=== PATIENT | female | born 1985 | race Caucasian/White ===

== ENCOUNTER 2021-01-22 19:07 | Outpatient (REF) | payer MEDICAID, SELFPAY ==
[2021-01-24 15:39] LABS: COVID-19 RT-PCR UVMMC Result Negative (Negative)
== END 2021-01-22 19:08 | disposition home or self-care (01) ==
LOC: NCHCN 19:07
PROVIDERS: PCP Family Medicine; Visit Provider Nurse Practitioner Community Health
DX: Z20.822 Contact with and (suspected) exposure to COVID-19 (principal); R05 Cough
CPT/HCPCS: U0003

== ENCOUNTER 2023-02-11 10:39 | Outpatient (REF) | payer MEDICAID, SELFPAY ==
[2023-02-11 15:31] LABS: ALT 27 U/L (14-59); AST 22 U/L (15-37); Albumin 4.4 g/dL (3.4-5.0); Alkaline Phosphatase 64 U/L (46-116); Anion Gap 10.1 mmol/L (3-11); BUN 18 mg/dL (7-18); Bilirubin, Total 0.9 mg/dL (0.2-1.0); CO2 26.9 mmol/L (21.0-32.0); CREATININE 0.8 mg/dL (0.55-1.02); Calcium 9.5 mg/dL (8.5-10.1); Calculated LDL 177 mg/dL (<100); Chloride 102 mmol/L (98-107); Cholesterol 260 mg/dL (<200); Estimated GFR 95.46 (mL/min/1.73m2); Glucose 92 mg/dL (74-106); HDL Cholesterol 74 mg/dL (40-60); Potassium 3.5 mmol/L (3.5-5.1); Sodium 139 mmol/L (136-145); Total Protein 7.4 g/dL (6.4-8.2); Triglyceride 49 mg/dL (<150)
[2023-02-11 15:41] LABS: Vitamin D 25 Total 16.8 ng/mL (30-100)
[2023-02-12 16:50] LABS: TSH (W/Ref FT4) 1.89 uIU/mL (0.36-3.74)
== END 2023-02-11 10:40 | disposition home or self-care (01) ==
LOC: NCHCN 10:39
PROVIDERS: PCP Family Medicine; Visit Provider Family Medicine
DX: E55.9 Vitamin D deficiency, unspecified (principal); R79.89 Other specified abnormal findings of blood chemistry; R61 Generalized hyperhidrosis
CPT/HCPCS: 80053; 80061; 82306; 84443

== ENCOUNTER 2023-02-12 16:31 | Outpatient (REF) | payer MEDICAID, SELFPAY ==
--- NOTE | 2023-02-12 14:00 | PAPFT_PTH ---
PATIENT: Tameka Atwood LOC: [facility]#:[id number] AGE/SX: 38/F ROOM: RE02/12/[address]: Yashira Bolden : 1985 BED: DIS: 02/12/2023 SPEC #: [id number] RECD: 02/16/23 13:25 STATUS: JOSIANE REFanny #: [id number] [place]: 02/12/23 14:[address]: Yashira Bolden [facility]PT[facility] Cytology RECD BY: Tiffani Perez Tissues: 1 - CX/ENDOCX FOR PAP SMEARS Procedures: PAP THIN PREP/[facility] Screening HPV DNA PROBE Comments: [id number] (CHLAMYDIA/GC)
[2023-02-17 15:48] LABS: Chlamydia Result Negative (Negative); GC Result Negative (Negative)
== END 2023-02-12 16:32 | disposition home or self-care (01) ==
LOC: NCHCN 16:31
PROVIDERS: PCP Family Medicine; Visit Provider Family Medicine
DX: Z11.3 Encounter for screening for infections with a predominantly sexual mode of transmission (principal); Z12.4 Encounter for screening for malignant neoplasm of cervix; Z11.51 Encounter for screening for human papillomavirus (HPV)
CPT/HCPCS: 87491; 87591; 88142; 87624

== ENCOUNTER 2024-10-10 15:16 | Outpatient (REF) | payer MEDICAID, SELFPAY ==
[2024-10-10 22:10] LABS: ALT 24 U/L (14-59); AST 14 U/L (15-37); Albumin 4.1 g/dL (3.4-5.0); Alkaline Phosphatase 63 U/L (46-116); Anion Gap 8.9 mmol/L (3-11); BUN 12 mg/dL (7-18); Bilirubin, Total 0.4 mg/dL (0.2-1.0); CO2 27.1 mmol/L (21.0-32.0); CREATININE 0.6 mg/dL (0.55-1.02); Calcium 9.2 mg/dL (8.5-10.1); Calculated LDL 124 mg/dL (<100); Chloride 105 mmol/L (98-107); Cholesterol 203 mg/dL (<200); Estimated GFR 115.57 (mL/min/1.73m2); Glucose 96 mg/dL (74-106); HDL Cholesterol 62 mg/dL (>or=50); Potassium 3.9 mmol/L (3.5-5.1); Sodium 141 mmol/L (136-145); Triglyceride 87 mg/dL (<150); Vitamin D 25 Total 11 ng/mL (30-100)
== END 2024-10-10 15:17 | disposition home or self-care (01) ==
LOC: NCHCN 15:16
PROVIDERS: PCP Family Medicine; Visit Provider Family Medicine
DX: F11.21 Opioid dependence, in remission (principal); R53.83 Other fatigue; E78.00 Pure hypercholesterolemia, unspecified
CPT/HCPCS: 80053; 80061; 82306

== ENCOUNTER 2025-01-15 03:31 | Outpatient (CLI) | payer MEDICAID, SELFPAY ==
[2025-01-15] MEDS: Inhaler, Assist Device 1 EACH MC (16:45)
[2025-01-15] MEDS: Levalbuterol HFA 15 GM INH 4 PUFF IH (16:46)
--- NOTE | 2025-01-16 14:57 | W.PFT ---
Date of service: 01/15/25 Time of Service: 15:18 Pulmonary Function Test Result Indications: Asthma/COPD Impression 1. Good patient effort was noted. ATS standards for reproducibility were met. 2. Spirometry showed an FEV1:FVC ratio that was below predicted, which can be seen with mild obstructive lung disease or be a normal variant. 3. Following the administration of a bronchodilator there was not a significant response 4. TLC was normal. No evidence of restrictive lung disease. RV was elevated, consistent with air trapping 5. The DLCO was normal
== END 2025-01-15 03:32 | disposition home or self-care (01) ==
LOC: RT 03:31
PROVIDERS: PCP Family Medicine; Visit Provider Family Medicine
DX: J45.901 Unspecified asthma with (acute) exacerbation (principal)
CPT/HCPCS: 94060; 94726; 94729

== ENCOUNTER 2025-04-18 16:21 | Outpatient (REF) | payer MEDICAID, SELFPAY ==
[2025-04-20 11:48] LABS: Chlamydia Result Negative (Negative); GC Result Negative (Negative)
== END 2025-04-18 16:22 | disposition home or self-care (01) ==
LOC: NCHCN 16:21
PROVIDERS: PCP Family Medicine; Visit Provider Physician Assistant
DX: R30.0 Dysuria (principal)
CPT/HCPCS: 87491; 87591; 87086